=== PATIENT | male | born 1965 | race African-American/Black ===

== ENCOUNTER 2017-03-10 08:02 | Day surgery (SDC) | payer MEDICAID ==
[~2017-03-10] VITALS: Ht 195.6 cm; Wt 145.1 kg
[~2017-03-10 08:02] MED LIST: FURO80TA3 PO; GLIP10TA10 PO; HYDR100T26 PO; METO25TA6 PO; NIFE90TA2 PO; TELM80TA5 PO
[2017-03-10] MEDS ORDERED: FENTANYL CITRATE/PF 50MCG/ML 2ML VIAL IV PRN (08:45)
[2017-03-10] MEDS ORDERED: ONDANSETRON HCL 4MG/2ML VIAL IV PRN (08:45)
[2017-03-10] MEDS ORDERED: PHENYLEPHRINE HCL 10% OPHTH DROPS 5ML RIGHTEYE ONE (09:20)
[2017-03-10] MEDS ORDERED: CYCLOPENTOLATE HCL 1% OPHTH DROPS 2ML RIGHTEYE ONE (09:20)
[2017-03-10] MEDS ORDERED: TROPICAMIDE 1% OPHTH DROPS 15ML RIGHTEYE ONE (09:20)
[2017-03-10] MEDS ORDERED: BALANCED SALT IRRIG SOLN COMB1 500ML OP SCH (09:30)
[2017-03-10] MEDS: SODIUM CHLORIDE 0.9% 1,000 ML IV SCH ×2 (09:50→14:35)
[2017-03-10] MEDS ORDERED: LIDOCAINE HCL 1% 20ML VIAL (Pyxis) INJ ONE (11:53)
[2017-03-10] MEDS ORDERED: PROPOFOL 200MG/20ML VIAL IV ONE (11:53)
[2017-03-10] MEDS ORDERED: HYALURONATE SODIUM 14 MG/ML 0.85ML SYRINGE IO ONE (11:54)
[2017-03-10] MEDS ORDERED: TELM80TA5 PO (12:57)
[2017-03-10] MEDS ORDERED: IBUP-1509 PO (12:57)
[2017-03-10] MEDS ORDERED: LIRA0.6P2 SQ (12:57)
[2017-03-10] MEDS ORDERED: LIDOCAINE HCL 2%/EPINEPHRINE 1:100,000 20 ML VIAL INFIL ONE (14:28)
[2017-03-10] MEDS ORDERED: NEO/POLYMYX B SULF/DEXAMETH OPHTH OINT 3.5GM ONE (14:28)
[2017-03-10] MEDS ORDERED: BALANCED SALT IRRIG SOLN 15ML ONE (14:28)
[2017-03-10] MEDS ORDERED: BUPIVACAINE HCL/PF 0.75% (7.5MG/ML) 10ML ONE (14:28)
[2017-03-10] MEDS ORDERED: CIPROFLOXACIN 0.3% OPHTH SOLN 2.5ML ONE (14:28)
[2017-03-10] MEDS ORDERED: TETRACAINE 0.5% OPHTH DROPS 4ML ONE (14:28)
[2017-03-10] MEDS ORDERED: PREDNISOLONE ACETATE 1% OPHTH DROPS 1ML ONE (14:28)
== END 2017-03-10 13:20 | disposition home or self-care (01) ==
LOC: OR 08:02
PROVIDERS: ATTEND Ophthalmology
DX: H25.9 Unspecified age-related cataract (principal)
CPT/HCPCS: 66984; 82962; 93005; J3490; J7030; V2632; J2704